=== PATIENT | male | born 1995 | race Caucasian/White ===

== ENCOUNTER → 2017-10-14 | Outpatient (CLI) | payer BC ==
--- NOTE | 2017-10-14 08:56 | DIAGNOSTIC IMAGING REPORT ---
RENAL ULTRASONOGRAPHY CLINICAL HISTORY: Urinary tract infection COMPARISON STUDY: No previous studies for comparison. FINDINGS: The right kidney measures 9.1 cm in length. The left kidney measures 10.8 cm in length. No focal renal masses are visualized. There are no perinephric fluid collections. There is mild left-sided hydronephrosis. Bilateral ureteral jets were visualized. No bladder abnormalities are evident. IMPRESSION: 1. No renal masses identified 2. Mild left-sided hydronephrosis 3. Bilateral ureteral jets were visualized Electronically signed by: Isaias Paz M.D. 10/14/2017 8:54 AM Dictated Date/Time: 10/14/2017 8:53 AM
== END | disposition home or self-care (01) ==
LOC: C.ULTR 08:04
PROVIDERS: ATTEND Family Medicine
DX: Z87.440 Personal history of urinary (tract) infections (principal); Z87.448 Personal history of other diseases of urinary system; N13.30 Unspecified hydronephrosis